=== PATIENT | female | born 1985 | race Caucasian/White ===

== ENCOUNTER 2017-04-29 14:32 | Emergency (ER) | payer SELFPAY ==
[2017-04-29] MEDS ORDERED: HYDROcodone/Acetaminophen 5/325 mg Tablet ONE (15:08)
--- NOTE | 2017-04-29 15:55 | RAD ---
THREE VIEWS LEFT ANKLE: 04/29/2017 HISTORY: Rolled ankle one month ago. Left ankle pain which is now worse. FINDINGS: The ankle mortise is congruent. No fracture or dislocation is seen. Posterior calcaneal enthesophy te is identified. There is subcutaneous soft tissue swelling about the ankle. IMPRESSION: Subcutaneous soft tissue swelling without evidence of a fracture. POS: MED
== END 2017-04-29 16:18 | disposition home or self-care (01) ==
LOC: MADERS 14:32
DX: S93.402A Sprain of unspecified ligament of left ankle, initial encounter (principal); F17.210 Nicotine dependence, cigarettes, uncomplicated; X58.XXXA Exposure to other specified factors, initial encounter

== ENCOUNTER 2018-11-29 22:39 | Emergency (ER) | payer SELFPAY ==
[2018-11-29] MEDS ORDERED: Adacel (T-DAP) 0.5 ML SYRINGE ONE (22:53)
== END 2018-11-29 23:38 | disposition home or self-care (01) ==
LOC: MADERS 22:39
DX: S61.412A Laceration without foreign body of left hand, initial encounter (principal); F17.210 Nicotine dependence, cigarettes, uncomplicated; W26.0XXA Contact with knife, initial encounter
CPT/HCPCS: 12002; 90471; 90715

== ENCOUNTER 2022-05-12 13:25 | Emergency (ER) | payer SELFPAY ==
[2022-05-12] MEDS ORDERED: Ketorolac Tromethamine 60 MG/2 ML VIAL ONE (15:47)
[2022-05-12] MEDS ORDERED: Amoxicillin/Potassium Clav 875 MG TAB ONE (15:47)
== END 2022-05-12 16:10 | disposition home or self-care (01) ==
LOC: MADERS 13:25
DX: H66.91 Otitis media, unspecified, right ear (principal); F17.210 Nicotine dependence, cigarettes, uncomplicated
CPT/HCPCS: 96372; 99282; J1885